=== PATIENT | female | born 2000 | race Two or more races ===

== ENCOUNTER 2021-08-31 13:50 | Emergency (ER) | payer OTHER ==
[~2021-08-31] VITALS: Ht 160 cm; Wt 80.3 kg
[2021-08-31] MEDS ORDERED: SINGULAIR4 M1 PO (14:12)
[2021-08-31] MEDS ORDERED: ZYRTEC10 M3 PO (14:12)
[2021-08-31] MEDS ORDERED: FLUCONAZOL10 MG/1 ML PO (14:13)
== END 2021-08-31 17:55 | disposition home or self-care (01) ==
LOC: ER 13:50
DX: O21.0 Mild hyperemesis gravidarum (principal); Z3A.01 Less than 8 weeks gestation of pregnancy

== ENCOUNTER 2021-09-06 19:43 | Emergency (ER) | payer OTHER ==
[~2021-09-06] VITALS: Ht 160 cm; Wt 79.4 kg
[~2021-09-06 19:43] MED LIST: FLUCONAZOL10 MG/1 ML PO; SINGULAIR4 M1 PO; ZYRTEC10 M3 PO
[2021-09-06] MEDS ORDERED: ZOFRAN8 MG PO (21:14)
[2021-09-06] MEDS ORDERED: PRENA1 TRUE CO1 EACH PO (21:15)
== END 2021-09-07 02:43 ==
LOC: ER 19:43
DX: O20.0 Threatened abortion (principal)

== ENCOUNTER 2021-09-18 22:55 | Emergency (ER) | payer OTHER ==
[~2021-09-18] VITALS: Ht 160 cm; Wt 81.2 kg
[~2021-09-18 22:55] MED LIST changes: +PRENA1 TRUE CO1 EACH PO; +ZOFRAN8 MG PO
== END 2021-09-19 03:45 | disposition home or self-care (01) ==
LOC: ER 22:55
DX: O26.851 Spotting complicating pregnancy, first trimester (principal); O41.8X10 Other specified disorders of amniotic fluid and membranes, first trimester, not applicable or unspecified; Z3A.09 9 weeks gestation of pregnancy

== ENCOUNTER 2021-12-24 20:01 | Emergency (ER) | payer OTHER ==
[~2021-12-24] VITALS: Ht 157.5 cm; Wt 80.7 kg
[2021-12-24] MEDS ORDERED: CHLORPHENIRAMINE4 M1 PO (21:08)
[2021-12-24] MEDS ORDERED: PEPCID AC20 MG PO (21:30)
== END 2021-12-24 22:29 | disposition home or self-care (01) ==
LOC: ER 20:01
DX: O26.892 Other specified pregnancy related conditions, second trimester (principal); T63.441A Toxic effect of venom of bees, accidental (unintentional), initial encounter; Z91.030 Bee allergy status; Z3A.24 24 weeks gestation of pregnancy; Z88.0 Allergy status to penicillin; Z88.6 Allergy status to analgesic agent; Z88.8 Allergy status to other drugs, medicaments and biological substances

== ENCOUNTER → 2022-03-30 | Outpatient (CLI) | payer OTHER ==
[~2022-03-30] MED LIST changes: +CHLORPHENIRAMINE4 M1 PO; +PEPCID AC20 MG PO
== END | disposition home or self-care (01) ==
LOC: NST 11:25
PROVIDERS: ATTEND Specialist
DX: Z34.83 Encounter for supervision of other normal pregnancy, third trimester (principal)

== ENCOUNTER 2022-04-09 05:33 | Inpatient (IN) | payer OTHER ==
[~2022-04-09] VITALS: Ht 160 cm; Wt 3.2 kg
[2022-04-12] MEDS ORDERED: PERCOCET 5-3251 EACH PO (07:15)
== END 2022-04-12 13:49 | disposition home or self-care (01) | DRG 788 ==
LOC: OB/GYN 05:33 → LDR 05:33 → OB/GYN 14:29
PROVIDERS: ADMIT Specialist; ATTEND Specialist
PROC: 4A1HXCZ Monitoring of Products of Conception, Cardiac Rate, External Approach (ICD-10-PCS; 2022-04-09)
PROC: 10D00Z1 Extraction of Products of Conception, Low, Open Approach (ICD-10-PCS; principal; 2022-04-09 11:00)
DX: O62.1 Secondary uterine inertia (principal); Z3A.39 39 weeks gestation of pregnancy; Z37.0 Single live birth; Z20.822 Contact with and (suspected) exposure to COVID-19

== ENCOUNTER 2022-04-21 18:26 | Emergency (ER) | payer OTHER ==
[~2022-04-21] VITALS: Ht 160 cm; Wt 76.2 kg
[~2022-04-21 18:26] MED LIST changes: +PERCOCET 5-3251 EACH PO
[2022-04-21] MEDS ORDERED: PANADOL (18:56)
[2022-04-21] MEDS ORDERED: CEFUROXIME500 MG PO (21:48)
== END 2022-04-21 22:03 | disposition home or self-care (01) ==
LOC: ER 18:26
DX: T81.41XA Infection following a procedure, superficial incisional surgical site, initial encounter (principal); Z88.6 Allergy status to analgesic agent; Z88.0 Allergy status to penicillin